=== PATIENT | male | born 1965 | race Caucasian/White ===

== ENCOUNTER 2018-05-11 14:30 | Emergency (ER) | payer OTHER ==
[~2018-05-11] VITALS: Ht 172.7 cm; Wt 81.7 kg
[~2018-05-11 14:30] MED LIST: MINIPRIN81 MG PO; NORCO 5-325 TA1 EACH PO; TESTOSTERONE INJ
[2018-05-11 14:35] VITALS: BP 127/77
[2018-05-11] MEDS ORDERED: MOBIC15 MG PO (14:49)
[2018-05-11] MEDS ORDERED: COZAAR 25 MG TA25 M1 PO (14:49)
[2018-05-11] MEDS ORDERED: OMEPRAZOLE 20 M20 M1 PO (14:51)
[2018-05-11] MEDS ORDERED: AXIRON30 MG/1.5 IM (14:51)
[2018-05-11] MEDS ORDERED: ARIMIDEX1 MG PO (14:52)
[2018-05-11] MEDS ORDERED: PERCOCET PO (14:52)
[2018-05-11] MEDS ORDERED: ROBAXIN 750 MG750 M1 PO (14:53)
[2018-05-11] MEDS ORDERED: DAPTOMYCIN500 MG IVPB (14:54)
[2018-05-11] MEDS ORDERED: MAXIPIME2 GM IVPB (14:54)
== END 2018-05-11 15:12 | disposition home or self-care (01) ==
LOC: M.ERS 14:30
DX: T82.868A Thrombosis due to vascular prosthetic devices, implants and grafts, initial encounter (principal); I10 Essential (primary) hypertension; M19.90 Unspecified osteoarthritis, unspecified site; Z98.890 Other specified postprocedural states